=== PATIENT | female | born 1990 ===

== ENCOUNTER 2017-04-08 12:01 | Emergency (ER) | payer BC ==
[2017-04-08 12:25] VITALS: TEMP 97.8
[2017-04-08 13:39] LABS: BASO # 0.02 K/mm3 (0.0-2.0); BASO % 0.2 % (0.0-3.0); EOS % 0.3 % (1.5-5.0); GRAN # 5.29 (1.4-6.5); GRAN % 54.2 % (50.0-68.0); HEMOGLOBIN 13.3 g/dL (12.0-16.0); LYMPH # 3.9 (1.2-3.4); LYMPH % 39.7 % (22.0-35.0); MEAN CORPUSCULAR HEMOGLOBIN 31.1 pg (25.0-35.0); MEAN CORPUSCULAR HGB CONC 33.8 g/dl (31.0-37.0); MEAN PLATELET VOLUME 9.6 fl (7.0-11.0); MONO # 0.6 (0.1-0.6); MONO % 5.6 % (1.0-6.0); RBC 4.27 10^6/uL (3.5-6.1); RED CELL DISTRIBUTION WIDTH 12.3 % (11.5-14.5); WHITE BLOOD COUNT 9.8 10^3/ul (4.5-11.0)
[2017-04-08 13:47] LABS: ALB/GLOB RATIO 1.3 (1.1-1.8); ALBUMIN 4.4 g/dL (3.0-4.8); ALT/SGPT 31 U/L (7-56); AST/SGOT 34 U/L (14-36); BLOOD UREA NITROGEN 17 mg/dL (7-21); GFR AFRICAN-AMERICAN > 60; GFR NON-AFRICAN AMERICAN > 60; LIPASE 78 U/L (23-300)
[2017-04-08] MEDS ORDERED: Sodium Chloride 0.9% 1,000 ML IV STA (13:49)
[2017-04-08 13:51] LABS: URINE BILIRUBIN NEGATIVE (NEGATIVE); URINE BLOOD NEGATIVE (NEGATIVE); URINE GLUCOSE (UA) NEGATIVE (NEGATIVE); URINE LEUKOCYTE ESTERASE TRACE Leu/uL (NEGATIVE); URINE NITRATE NEGATIVE (NEGATIVE); URINE PROTEIN NEGATIVE mg/dL (<30 mg/dL); URINE UROBILINOGEN 0.2 E.U./dL (<1 E.U./dL)
[2017-04-08 14:02] LABS: URINE APPEARANCE CLEAR (CLEAR); URINE COLOR YELLOW (YELLOW)
[2017-04-08 14:10] LABS: URINE BACTERIA SMALL (NEG); URINE RBC 0 - 2 /hpf (0-2); URINE WBC 0 - 2 /hpf (0-6)
--- NOTE | 2017-04-08 16:03 | ED PDOC ---
Arrival/HPI - General Chief Complaint: Abdominal Pain Time Seen by Provider: 04/08/17 12:39 Historian: Patient - History of Present Illness Narrative History of Present Illness (Text): 04/08/17 18:10 26-year-old female presents today with a 1-2 month history of worsening epigastric pain. Patient states she was seen by her GI doctor a few weeks ago and had a negative ultrasound of the abdomen. Patient states she has been refusing to take medications because she does not like to take medications unless absolutely necessary. Patient states she was scheduled for an endoscopy but canceled the endoscopy due to insurance reasons. Patient denies chest pain or shortness of breath. Denies nausea vomiting or diarrhea. Patient states she has a gnawing burning pain in the epigastrium that worsens after eating and worsens when she is extremely hungry. Patient denies dysuria or urinary frequency or urgency. Denies headache dizziness or weakness. No medications have been taken at home. No other complaints Time/Duration: > month Symptom Onset: Gradual Symptom Course: Intermittent Quality: Aching, Burning Severity Level: 5 Past Medical History - Provider Review Nursing Documentation Reviewed: Yes - Travel History Have you recently traveled outside [place] w/in the past 3 mons?: No - Infectious Disease Hx of Infectious Diseases: None - Tetanus Immunization Tetanus Immunization: Unknown - Psychiatric Hx Psychophysiologic Disorder: No Hx Substance Use: No - Surgical History Hx Tonsillectomy: Yes Family/Social History - Physician Review Nursing Documentation Reviewed: Yes Family/Social History: Unknown Family HX Smoking Status: Never Smoked Hx Alcohol Use: Yes Frequency of alcohol use: Socially Hx Substance Use: No Allergies/Home Meds Allergies/Adverse Reactions: Allergies No Known Allergies Allergy (Verified 04/08/17 12:17) Review of Systems - Review of Systems Constitutional: absent: Fatigue, Fevers Respiratory: absent: SOB, Cough Cardiovascular: absent: Chest Pain, Palpitations Gastrointestinal: Abdominal Pain. absent: Constipation, Diarrhea, Nausea, Vomiting Genitourinary Female: absent: Dysuria, Frequency, Hematuria Musculoskeletal: absent: Arthralgias, Back Pain, Neck Pain Skin: absent: Rash, Pruritis Neurological: absent: Headache, Dizziness Psychiatric: absent: Anxiety, Depression, Suicidal Ideation Physical Exam Vital Signs Reviewed: Yes Vital Signs Temp Pulse Resp BP Pulse Ox 04/08/17 12:21 97.8 F 60 16 120/73 98 Temperature: Afebrile Blood Pressure: Normal Pulse: Regular Respiratory Rate: Normal Appearance: Positive for: Well-Appearing, Non-Toxic, Comfortable Pain Distress: None Mental Status: Positive for: Alert and Oriented X 3 - Systems Exam Head: Present: Atraumatic Mouth: Present: Moist Mucous Membranes Neck: Present: Normal Range of Motion Respiratory/Chest: Present: Clear to Auscultation, Good Air Exchange. No: Respiratory Distress, Accessory Muscle Use Cardiovascular: Present: Regular Rate and Rhythm, Normal S1, S2. No: Murmurs Abdomen: Present: Tenderness (+ epigastric tenderness. ), Normal Bowel Sounds. No: Distention, Peritoneal Signs, Rebound, Guarding Back: Present: Normal Inspection. No: CVA Tenderness, Midline Tenderness Upper Extremity: Present: Normal ROM Lower Extremity: Present: Normal ROM Neurological: Present: GCS=15 Skin: Present: Warm, Dry, Normal Color. No: Rashes Psychiatric: Present: Alert, Oriented x 3 Medical Decision Making ED Course and Treatment: 04/08/17 19:36 Patient is nontoxic well appearing with stable vital signs presenting with epigastric abdominal pain CBC wnl CMPwnl Lipasewnl Urinalysis + ketones, + leukocytes, + epithelials. Most likely contaminated Patient denies any urinary symptoms we'll send urine culture Ultrasound of the abdomen was performed on 03/28 which was reviewed and was negative Patient was given Pepcid IV. Patient reassessment: Patient is nontoxic well appearing in no distress. Patient states her symptoms have completely resolved. Discussed all results with patient in depth Stressed importance of follow-up with the GI specialist within the next 2 days. Advised me to return if symptoms worsen or persist or if new concerning symptoms develop. Advised taking Pepcid daily. Patient verbalizes understanding of discharge instructions and need for immediate followup. all aspects of this case were discussed the attending of record. Impression: Abdominal pain follow up with the GI specialist within the next 2 days. Pepcid one tablet daily Follow up with primary care physician within the next 2 days Return immediately if symptoms worsen persist or if new symptoms develop: High fevers, increasing pain, vomiting, diarrhea or any other concerning symptoms develop - Lab Interpretations Lab Results: 04/08/17 13:20 04/08/17 13:20 Lab Results 04/08/17 13:20: WBC 9.8, RBC 4.27, Hgb 13.3, Hct 39.3, MCV 92.0, MCH 31.1, MCHC 33.8, RDW 12.3, Plt Count 290, MPV 9.6, Gran % 54.2, Lymph % (Auto) 39.7 H, [place] % (Auto) 5.6, Eos % (Auto) 0.3 L, Baso % (Auto) 0.2, Gran # 5.29, Lymph # ( Auto) 3.9 H, [place] # (Auto) 0.6, Eos # (Auto) 0.0, Baso # (Auto) 0.02 04/08/17 13:20: Sodium 142, Potassium 4.0, Chloride 102, Carbon Dioxide 26, Anion Gap 17, BUN 17, Creatinine 0.7, Est GFR ( Amer) > 60, Est GFR (Non- Af Amer) > 60, Random Glucose 79, Calcium 10.0, Total Bilirubin 1.4 H, AST 34, ALT 31, Alkaline Phosphatase 43, Total Protein 7.8, Albumin 4.4, Globulin 3.4, Albumin/Globulin Ratio 1.3, Lipase 78 04/08/17 12:40: Urine Color Yellow, Urine Appearance Clear, Urine pH 6.0, Ur Specific [place] 1.020, Urine Protein Negative, Urine Glucose (UA) Negative, Urine Ketones 40 H, Urine Blood Negative, Urine Nitrate Negative, Urine Bilirubin Negative, Urine Urobilinogen 0.2, Ur Leukocyte Esterase Trace H, Urine RBC 0 - 2, Urine WBC 0 - 2, Ur Epithelial Cells 6 - 8, Urine Bacteria Small - Medication Orders Current Medication Orders: Discontinued Medications Famotidine (Pepcid) 20 mg IVP STAT STA Stop: 04/08/17 13:50 Last Admin: 04/08/17 13:59 Dose: 20 mg IVP Administration Document 04/08/17 13:59 GMD (Rec: 04/08/17 13:59 [facility]MD [facility]) Charges for Administration # of IVP Administrations 1 Sodium Chloride (Sodium Chloride 0.9%) 1,000 mls @ 999 mls/hr IV .Q1H1M STA Stop: 04/08/17 14:49 Last Admin: 04/08/17 14:02 Dose: 999 mls/hr eMAR Start Stop Document 04/08/17 14:02 GMD (Rec: 04/08/17 14:02 GMD [facility]) Intravenous Solution Start Date 04/08/17 Start Time 14:02 End Date 04/08/17 End time 15:03 Total Infusion Time 61 Disposition/Present on Arrival - Present on Arrival Any Indicators Present on Arrival: No History of DVT/PE: No History of Uncontrolled Diabetes: No Urinary Catheter: No History of Decub. Ulcer: No History Surgical Site Infection Following: None - Disposition Have Diagnosis and Disposition been Completed?: Yes Diagnosis: Abdominal pain Disposition: HOME/ ROUTINE Disposition Time: 15:59 Patient Plan: Discharge Patient Problems: Current Active Problems Problem Status Onset Abdominal pain Acute Condition: GOOD Discharge Instructions (ExitCare): Gastritis (ED), Acute Abdominal Pain (ED) Additional Instructions: Pepcid one tablet daily Follow up with the GI doctor within the next 2 days. Follow up with primary care physician within the next 2 days Return immediately if symptoms worsen persist or if new symptoms develop: High fevers, increasing pain, vomiting, diarrhea or any other concerning symptoms develop Prescriptions: Famotidine [Pepcid] 20 mg PO DAILY #30 tab Referrals: Romelia Mayen DO [Primary Care Provider] - Follow up with primary Gavino Almanza MD [Staff Provider] - Follow up with primary Forms: [facility] (Welsh), WORK NOTE, SCHOOL NOTE
[2017-04-08 16:16] VITALS: BP 101/66; PULSE 61; RESP 18; O2SAT 100
== END 2017-04-08 16:16 | disposition home or self-care (01) ==
LOC: ED 12:01
DX: R10.9 Unspecified abdominal pain (principal)
CPT/HCPCS: 80053; 81001; 83690; 85025; 87086; 96361; 96374; 99284; J7040